=== PATIENT | female | born 1940 | race Caucasian/White ===

== ENCOUNTER 2021-08-04 07:59 | Outpatient (CLI) | payer MEDICARE | END 2021-08-04 23:59 | disposition home or self-care (01) | LOC: ROC 07:59 | PROVIDERS: ATTEND Radiology Radiation Oncology | DX: C34.90 Malignant neoplasm of unspecified part of unspecified bronchus or lung (principal); C79.31 Secondary malignant neoplasm of brain; I10 Essential (primary) hypertension; K21.9 Gastro-esophageal reflux disease without esophagitis; E78.00 Pure hypercholesterolemia, unspecified; M19.90 Unspecified osteoarthritis, unspecified site; G89.29 Other chronic pain; M54.5 Low back pain; M81.0 Age-related osteoporosis without current pathological fracture; F41.9 Anxiety disorder, unspecified; Z90.49 Acquired absence of other specified parts of digestive tract | CPT/HCPCS: 99214; G0463 ==